=== PATIENT | male | born 1945 | race African-American/Black ===

== ENCOUNTER 2020-03-10 19:27 | Inpatient (IN) ==
[~2020-03-10 19:27] MED LIST: LEVOFLOXACIN INJ 750 MG in PREMIX 1 EACH IV ONE
[2020-03-10 20:36] LABS: Basophils % 0.2 % (0.0-0.8); Eosinophils # 0.2 10*3/uL (0.0-0.87); Eosinophils % 2.1 % (0.00-10.9); Hematocrit 29.9 VOL% (42.0-52.0); Hemoglobin 9.4 GM/DL (14.0-18.0); Immature Granulocytes % 0.8 %; Immature Granulocytes Absolute 0.08 #; Lymphocytes % 9.8 % (21.2-54.2); Mean Corpuscular HGB Conc 31.4 GM/DL (32-36); Mean Corpuscular Volume 90.1 FL (87-102); Mean Platelet Volume 10.4 FL (9.6-12.0); Monocytes % 7.9 % (1.7-12.7); Neutrophils % 79.2 % (38.7-73.9); Platelet Count 199 T/CUMM (130-400); Red Blood Count 3.32 MC/CUMM (3.8-5.5); Red Cell Distribution Width 13.9 % (9.3-17.3); White Blood Count 10.3 T/CUMM (4-12)
[2020-03-10 21:06] LABS: Albumin 2.7 G/DL (3.4-5.0); Bilirubin,Total 0.9 MG/DL (0.2-1.0); Calcium 7.5 MG/DL (8.5-10.1); Osmolality,Calculated 286.4 MOS/KG (273-304); Total Protein 6.7 G/DL (6.4-8.3)
[2020-03-10 21:18] LABS: Ferritin 1150.5 ng/ml (26-388)
[2020-03-10] MEDS ORDERED: SODIUM CHLORIDE 0.9% 500 ML IV STA (21:24)
[2020-03-10] MEDS ORDERED: PIPERACILLIN/TAZOBACTAM 3,375 MG in SODIUM CHLORIDE 0.9% 100 ML IV STA (21:25)
[2020-03-10] MEDS ORDERED: ONDANSETRON 4 MG/2 ML VIAL IV PRN (23:38)
[2020-03-10] MEDS ORDERED: DEXTROSE 10% 250 ML BAG IV PRN (23:38)
[2020-03-10] MEDS ORDERED: ACETAMINOPHEN 325 MG TABLET PO PRN (23:38)
[2020-03-10] MEDS ORDERED: GLUCAGON 1 MG VIAL IM PRN (23:38)
[2020-03-11] MEDS: SODIUM CHLORIDE 0.9% 1,000 ML IV SCH ×2 (00:54→18:34)
[2020-03-11] MEDS: HEPARIN 5,000 UNIT/1 ML VIAL SUBCUT SCH ×3 (00:55→16:30)
[2020-03-11] MEDS ORDERED: LEVOFLOXACIN INJ 750 MG in PREMIX 1 EACH IV ONE (02:00)
[2020-03-11 06:04] LABS: Basophils % 0.2 % (0.0-0.8); Eosinophils # 0.2 10*3/uL (0.0-0.87); Eosinophils % 2.2 % (0.00-10.9); Hematocrit 29.2 VOL% (42.0-52.0); Hemoglobin 9.3 GM/DL (14.0-18.0); Immature Granulocytes % 1.1 %; Immature Granulocytes Absolute 0.11 #; Lymphocytes # 0.9 10*3/uL (1.4-4.0); Lymphocytes % 8.9 % (21.2-54.2); Mean Corpuscular HGB Conc 31.8 GM/DL (32-36); Mean Corpuscular Volume 90.7 FL (87-102); Mean Platelet Volume 10.7 FL (9.6-12.0); Monocytes % 8.5 % (1.7-12.7); Neutrophils % 79.1 % (38.7-73.9); Platelet Count 190 T/CUMM (130-400); Red Blood Count 3.22 MC/CUMM (3.8-5.5); Red Cell Distribution Width 13.9 % (9.3-17.3); White Blood Count 9.6 T/CUMM (4-12)
[2020-03-11 06:28] LABS: Calcium 7.9 MG/DL (8.5-10.1); Osmolality,Calculated 291.9 MOS/KG (273-304)
[2020-03-11] MEDS ORDERED: HYDROXYCHLOROQUINE 200 MG TABLET PO SCH (09:00)
[2020-03-11] MEDS: PIPERACILLIN/TAZOBACTAM 3,375 MG in SODIUM CHLORIDE 0.9% 100 ML IV SCH ×2 (09:14→23:52)
[2020-03-11] MEDS: INSULIN LISPRO 100 UNIT/ML SUBCUT SCH ×4 (09:14→21:02)
[2020-03-11] MEDS: ZINC SULFATE 220 MG CAPSULE PO SCH (09:14)
[2020-03-11] MEDS ORDERED: ALBUTEROL/IPRATROPIUM 3 ML NEB RESP TX PRN (11:11)
[2020-03-11] MEDS: traMADol 50 MG TABLET PO SCH (12:11)
[2020-03-11] MEDS: INSULIN NPH/REGULAR 70/30 100 UNIT/ML SUBCUT SCH (16:22)
[2020-03-11] MEDS: GABAPENTIN 300 MG CAPSULE PO SCH ×2 (16:30→21:00)
[2020-03-11] MEDS ORDERED: FUROSEMIDE 80 MG TABLET PO SCH (21:00)
[2020-03-11] MEDS: carvediloL 12.5 MG TABLET PO SCH (21:00)
[2020-03-11] MEDS: FERROUS SULFATE 325 MG TABLET PO SCH (21:00)
[2020-03-11] MEDS: POLYETHYLENE GLYCOL POWDER 17 GM PACK PO SCH (23:52)
[2020-03-12] MEDS: HEPARIN 5,000 UNIT/1 ML VIAL SUBCUT SCH ×3 (00:35→16:12)
[2020-03-12] MEDS: traMADol 50 MG TABLET PO SCH ×2 (00:35→12:10)
[2020-03-12 06:11] LABS: Basophils % 0.2 % (0.0-0.8); Eosinophils # 0.2 10*3/uL (0.0-0.87); Eosinophils % 2.1 % (0.00-10.9); Hematocrit 28.4 VOL% (42.0-52.0); Hemoglobin 9.2 GM/DL (14.0-18.0); Lymphocytes % 10.7 % (21.2-54.2); Mean Corpuscular HGB Conc 32.4 GM/DL (32-36); Mean Corpuscular Volume 88.8 FL (87-102); Mean Platelet Volume 10.4 FL (9.6-12.0); Monocytes % 9.3 % (1.7-12.7); Neutrophils % 76.7 % (38.7-73.9); Platelet Count 208 T/CUMM (130-400); White Blood Count 9.6 T/CUMM (4-12)
[2020-03-12] MEDS: INSULIN NPH/REGULAR 70/30 100 UNIT/ML SUBCUT SCH ×2 (06:18→16:12)
[2020-03-12] MEDS: SODIUM CHLORIDE 0.9% 1,000 ML IV SCH ×2 (06:19→22:34)
[2020-03-12 06:36] LABS: Osmolality,Calculated 296.5 MOS/KG (273-304)
[2020-03-12 06:42] LABS: Ferritin 1365.4 ng/ml (26-388)
[2020-03-12] MEDS ORDERED: HYDROXYCHLOROQUINE 200 MG TABLET PO SCH (09:00)
[2020-03-12] MEDS ORDERED: TORSEMIDE 20 MG TABLET PO SCH (09:00)
[2020-03-12] MEDS ORDERED: metOLazone 2.5 MG TABLET PO SCH (09:00)
[2020-03-12] MEDS: ATORVASTATIN 80 MG TABLET PO SCH (09:26)
[2020-03-12] MEDS: SPIRONOLACTONE 25 MG TABLET PO SCH (09:26)
[2020-03-12] MEDS: INSULIN LISPRO 100 UNIT/ML SUBCUT SCH ×4 (09:26→21:42)
[2020-03-12] MEDS: CETIRIZINE 10 MG TABLET PO SCH (09:30)
[2020-03-12] MEDS: carvediloL 12.5 MG TABLET PO SCH ×2 (09:30→21:40)
[2020-03-12] MEDS: LOSARTAN 25 MG TABLET PO SCH (09:31)
[2020-03-12] MEDS: ISOSORBIDE MONONITRATE 30 MG TABLET PO SCH (09:31)
[2020-03-12] MEDS: GABAPENTIN 300 MG CAPSULE PO SCH ×3 (09:31→21:40)
[2020-03-12] MEDS: CLOPIDOGREL 75 MG TABLET PO SCH (09:31)
[2020-03-12] MEDS: TAMSULOSIN 0.4 MG CAPSULE PO SCH (09:31)
[2020-03-12] MEDS: POTASSIUM CHLORIDE 20 MEQ TABLET PO SCH (09:31)
[2020-03-12] MEDS: FERROUS SULFATE 325 MG TABLET PO SCH ×2 (09:32→21:40)
[2020-03-12] MEDS: ASPIRIN CHEW 81 MG TABLET PO SCH (09:32)
[2020-03-12] MEDS: POLYETHYLENE GLYCOL POWDER 17 GM PACK PO SCH ×2 (09:32→21:40)
[2020-03-12] MEDS: PIPERACILLIN/TAZOBACTAM 3,375 MG in SODIUM CHLORIDE 0.9% 100 ML IV SCH ×2 (09:45→21:37)
[2020-03-13] MEDS: traMADol 50 MG TABLET PO SCH ×2 (00:30→14:07)
[2020-03-13] MEDS: HEPARIN 5,000 UNIT/1 ML VIAL SUBCUT SCH ×3 (00:31→16:13)
[2020-03-13] MEDS: LEVOFLOXACIN INJ 500 MG in PREMIX 1 EACH IV SCH (02:00)
[2020-03-13 06:16] LABS: Ferritin 1461.5 ng/ml (26-388)
[2020-03-13 07:10] LABS: Basophils % 0.2 % (0.0-0.8); Eosinophils # 0.2 10*3/uL (0.0-0.87); Eosinophils % 1.5 % (0.00-10.9); Hemoglobin 8.5 GM/DL (14.0-18.0); Immature Granulocytes % 1.8 %; Immature Granulocytes Absolute 0.18 #; Mean Corpuscular HGB Conc 31.5 GM/DL (32-36); Mean Corpuscular Volume 90.9 FL (87-102); Mean Platelet Volume 10.3 FL (9.6-12.0); Monocytes % 8.2 % (1.7-12.7); NRBC # 0.02 10*3/uL; Neutrophils % 78.3 % (38.7-73.9); Platelet Count 231 T/CUMM (130-400); Red Blood Count 2.97 MC/CUMM (3.8-5.5); Red Cell Distribution Width 14.2 % (9.3-17.3); White Blood Count 10.1 T/CUMM (4-12)
[2020-03-13 07:25] LABS: ABG Base Excess 3.3 MMOL/L (-2.5-2.5); ABG HCO3 27.2 MMOL/L (20-26); ABG Oxygen Saturation 90.4 % (95-100); ABG PCO2 51.2 MM HG (35-48); ABG PH 7.366 (7.35-7.45); ABG PO2 62.7 MM HG (80-95); ABG TCO2 27.3 MMOL/L (23-27)
[2020-03-13 07:27] LABS: Calcium 7.8 MG/DL (8.5-10.1); Osmolality,Calculated 300.5 MOS/KG (273-304); Total Protein 6.7 G/DL (6.4-8.3)
[2020-03-13 07:29] LABS: Eosinophils 1 % (0-10); Hypochromasia 1+; Lymphocytes 12 % (20-55); Platelet Estimate Adequate; Segmented Neutrophils 78 % (50-85); Total Cells Counted 100
[2020-03-13] MEDS: INSULIN NPH/REGULAR 70/30 100 UNIT/ML SUBCUT SCH ×2 (07:56→16:16)
[2020-03-13] MEDS: ASPIRIN CHEW 81 MG TABLET PO SCH (08:43)
[2020-03-13] MEDS: ATORVASTATIN 80 MG TABLET PO SCH (08:43)
[2020-03-13] MEDS: GABAPENTIN 300 MG CAPSULE PO SCH ×3 (08:43→21:22)
[2020-03-13] MEDS: CETIRIZINE 10 MG TABLET PO SCH (08:43)
[2020-03-13] MEDS: FERROUS SULFATE 325 MG TABLET PO SCH ×2 (08:44→21:20)
[2020-03-13] MEDS: ZINC SULFATE 220 MG CAPSULE PO SCH (08:44)
[2020-03-13] MEDS: SPIRONOLACTONE 25 MG TABLET PO SCH (08:44)
[2020-03-13] MEDS: POTASSIUM CHLORIDE 20 MEQ TABLET PO SCH (08:44)
[2020-03-13] MEDS: TAMSULOSIN 0.4 MG CAPSULE PO SCH (08:44)
[2020-03-13] MEDS: DOCUSATE SODIUM 100 MG CAPSULE PO PRN (08:44)
[2020-03-13] MEDS: ISOSORBIDE MONONITRATE 30 MG TABLET PO SCH (08:44)
[2020-03-13] MEDS: carvediloL 12.5 MG TABLET PO SCH ×2 (08:45→21:22)
[2020-03-13] MEDS: LOSARTAN 25 MG TABLET PO SCH (08:45)
[2020-03-13] MEDS: CLOPIDOGREL 75 MG TABLET PO SCH (08:45)
[2020-03-13] MEDS: PIPERACILLIN/TAZOBACTAM 3,375 MG in SODIUM CHLORIDE 0.9% 100 ML IV SCH ×2 (08:53→21:18)
[2020-03-13] MEDS: INSULIN LISPRO 100 UNIT/ML SUBCUT SCH ×4 (08:53→21:21)
[2020-03-13] MEDS: POLYETHYLENE GLYCOL POWDER 17 GM PACK PO SCH ×2 (08:54→21:19)
[2020-03-13] MEDS ORDERED: MAGNESIUM HYDROXIDE PO PRN (12:33)
[2020-03-13] MEDS ORDERED: ALUMINUM HYDROXIDE PO PRN (12:33)
[2020-03-13] MEDS ORDERED: ONDANSETRON ODT 4 MG TABLET PO PRN (12:33)
[2020-03-13] MEDS ORDERED: ACETAMINOPHEN 325 MG TABLET PO PRN (12:33)
[2020-03-13] MEDS ORDERED: SIMETHICONE PO PRN (12:33)
[2020-03-13] MEDS ORDERED: POLYVINYL ALCOHOL 1.4% OPH SOLN 15 ML BOTTLE BOTH EYES PRN (12:38)
[2020-03-13] MEDS ORDERED: MAGNESIUM SULF RIDER 2 GM in PREMIX 1 EACH IV ONE (15:00)
[2020-03-13] MEDS: ALBUTEROL INHALER 18 GM INH SCH ×2 (15:33→21:22)
[2020-03-13] MEDS ORDERED: MORPHINE 4 MG/1 ML VIAL IV PRN (16:43)
[2020-03-13 16:47] LABS: ABG Base Excess 3.1 MMOL/L (-2.5-2.5); ABG Oxygen Saturation 79.9 % (95-100); ABG PCO2 44.3 MM HG (35-48); ABG TCO2 26.2 MMOL/L (23-27)
[2020-03-13] MEDS ORDERED: DEXAMETHASONE INJ 6 MG in SODIUM CHLORIDE 0.9% 50 ML IV SCH (17:00)
[2020-03-13] MEDS ORDERED: FUROSEMIDE INJ 160 MG in SODIUM CHLORIDE 0.9% 50 ML IV ONE (18:00)
[2020-03-13] MEDS: DEXAMETHASONE 4 MG/1 ML VIAL IV SCH (18:06)
[2020-03-13] MEDS: SODIUM CHLORIDE 0.9% 1,000 ML IV SCH ×2 (18:06→18:07)
[2020-03-13] MEDS: ASCORBIC ACID 500 MG TABLET PO SCH (21:20)
[2020-03-14] MEDS: traMADol 50 MG TABLET PO SCH ×2 (00:51→12:41)
[2020-03-14] MEDS: HEPARIN 5,000 UNIT/1 ML VIAL SUBCUT SCH ×3 (00:52→17:57)
[2020-03-14] MEDS: ALBUTEROL INHALER 18 GM INH SCH ×4 (03:30→20:32)
[2020-03-14 05:18] LABS: Basophils % 0.2 % (0.0-0.8); Eosinophils % 0.1 % (0.00-10.9); Hematocrit 28.9 VOL% (42.0-52.0); Immature Granulocytes % 2.5 %; Immature Granulocytes Absolute 0.29 #; Lymphocytes # 1.4 10*3/uL (1.4-4.0); Lymphocytes % 11.8 % (21.2-54.2); Mean Corpuscular HGB Conc 31.1 GM/DL (32-36); Mean Corpuscular Volume 90.9 FL (87-102); Mean Platelet Volume 9.8 FL (9.6-12.0); Monocytes % 5.7 % (1.7-12.7); Neutrophils % 79.7 % (38.7-73.9); Platelet Count 293 T/CUMM (130-400); Red Blood Count 3.18 MC/CUMM (3.8-5.5); Red Cell Distribution Width 14.3 % (9.3-17.3); White Blood Count 11.5 T/CUMM (4-12)
[2020-03-14 05:48] LABS: Hypochromasia 1+; Polychromasia Slight
[2020-03-14 05:49] LABS: Microcytosis Slight; Platelet Estimate Normal
[2020-03-14 05:54] LABS: Albumin 2.2 G/DL (3.4-5.0); Bilirubin,Total 1.2 MG/DL (0.2-1.0); Calcium 8.6 MG/DL (8.5-10.1); Osmolality,Calculated 306.2 MOS/KG (273-304); Total Protein 7.4 G/DL (6.4-8.3)
[2020-03-14 05:55] LABS: Ferritin 1485.3 ng/ml (26-388)
[2020-03-14] MEDS ORDERED: NON-FORMULARY MEDICATION (Omeprazole 20 MG) PO SCH (06:00)
[2020-03-14 07:28] LABS: ABG Base Excess 1.8 MMOL/L (-2.5-2.5); ABG HCO3 25.8 MMOL/L (20-26); ABG Oxygen Saturation 85.3 % (95-100); ABG PCO2 38.7 MM HG (35-48); ABG PH 7.435 (7.35-7.45); ABG PO2 51.6 MM HG (80-95); ABG TCO2 23.8 MMOL/L (23-27)
[2020-03-14] MEDS ORDERED: LORazepam 2 MG/1 ML VIAL IV ONE (09:00)
[2020-03-14] MEDS: INSULIN NPH/REGULAR 70/30 100 UNIT/ML SUBCUT SCH ×2 (09:16→17:57)
[2020-03-14] MEDS: INSULIN LISPRO 100 UNIT/ML SUBCUT SCH ×4 (09:16→20:30)
[2020-03-14] MEDS: TAMSULOSIN 0.4 MG CAPSULE PO SCH (09:17)
[2020-03-14] MEDS: MULTIVITAMIN (CENTRUM) TABLET PO SCH (09:17)
[2020-03-14] MEDS: ISOSORBIDE MONONITRATE 30 MG TABLET PO SCH (09:17)
[2020-03-14] MEDS: CLOPIDOGREL 75 MG TABLET PO SCH (09:18)
[2020-03-14] MEDS: LOSARTAN 25 MG TABLET PO SCH (09:18)
[2020-03-14] MEDS: GABAPENTIN 300 MG CAPSULE PO SCH ×3 (09:18→20:31)
[2020-03-14] MEDS: carvediloL 12.5 MG TABLET PO SCH ×2 (09:18→20:32)
[2020-03-14] MEDS: DOCUSATE SODIUM 100 MG CAPSULE PO PRN (09:18)
[2020-03-14] MEDS: FERROUS SULFATE 325 MG TABLET PO SCH ×2 (09:18→20:32)
[2020-03-14] MEDS: ATORVASTATIN 80 MG TABLET PO SCH (09:18)
[2020-03-14] MEDS: POLYETHYLENE GLYCOL POWDER 17 GM PACK PO SCH ×2 (09:19→20:31)
[2020-03-14] MEDS: POTASSIUM CHLORIDE 20 MEQ TABLET PO SCH (09:19)
[2020-03-14] MEDS: FINASTERIDE 5 MG TABLET PO SCH (09:19)
[2020-03-14] MEDS: DEXAMETHASONE 4 MG/1 ML VIAL IV SCH (09:20)
[2020-03-14] MEDS: SPIRONOLACTONE 25 MG TABLET PO SCH (09:20)
[2020-03-14] MEDS: ASPIRIN CHEW 81 MG TABLET PO SCH (09:20)
[2020-03-14] MEDS: ASCORBIC ACID 500 MG TABLET PO SCH ×2 (09:24→20:32)
[2020-03-14] MEDS: CETIRIZINE 10 MG TABLET PO SCH (09:24)
[2020-03-14] MEDS: PANTOPRAZOLE 20 MG TABLET PO SCH (09:24)
[2020-03-14] MEDS: LEVOFLOXACIN INJ 500 MG in PREMIX 1 EACH IV SCH (14:55)
[2020-03-14] MEDS: SODIUM CHLORIDE 0.9% 1,000 ML IV SCH (17:58)
[2020-03-15] MEDS: HEPARIN 5,000 UNIT/1 ML VIAL SUBCUT SCH ×3 (00:50→16:15)
[2020-03-15] MEDS: traMADol 50 MG TABLET PO SCH ×2 (00:50→12:02)
[2020-03-15] MEDS: ALBUTEROL INHALER 18 GM INH SCH ×4 (03:24→20:23)
[2020-03-15 05:19] LABS: Basophils % 0.3 % (0.0-0.8); Eosinophils % 0.2 % (0.00-10.9); Hematocrit 27.3 VOL% (42.0-52.0); Hemoglobin 8.7 GM/DL (14.0-18.0); Immature Granulocytes % 3.1 %; Immature Granulocytes Absolute 0.35 #; Lymphocytes # 1.3 10*3/uL (1.4-4.0); Mean Corpuscular HGB Conc 31.9 GM/DL (32-36); Mean Corpuscular Volume 89.8 FL (87-102); Mean Platelet Volume 9.9 FL (9.6-12.0); Monocytes % 10.2 % (1.7-12.7); NRBC # 0.02 10*3/uL; Neutrophils % 74.2 % (38.7-73.9); Platelet Count 288 T/CUMM (130-400); Red Blood Count 3.04 MC/CUMM (3.8-5.5); Red Cell Distribution Width 14.2 % (9.3-17.3); White Blood Count 11.1 T/CUMM (4-12)
[2020-03-15 05:44] LABS: Ferritin 1557.9 ng/ml (26-388)
[2020-03-15 05:45] LABS: Albumin 2.3 G/DL (3.4-5.0); Bilirubin,Total 0.7 MG/DL (0.2-1.0); Calcium 8.6 MG/DL (8.5-10.1); Osmolality,Calculated 300.4 MOS/KG (273-304)
[2020-03-15 05:52] LABS: Band Neutrophils 1 % (0-10); Hypochromasia 1+; Lymphocytes 4 % (20-55); Microcytosis Slight; Ovalocytes Slight; Platelet Estimate Adequate; Segmented Neutrophils 87 % (50-85); Total Cells Counted 100
[2020-03-15 05:54] LABS: Risk Ratio 3.38; VLDL CHOLESTEROL 19.6 MG/DL
[2020-03-15] MEDS: INSULIN NPH/REGULAR 70/30 100 UNIT/ML SUBCUT SCH ×2 (06:23→16:15)
[2020-03-15] MEDS: INSULIN LISPRO 100 UNIT/ML SUBCUT SCH ×4 (08:21→20:23)
[2020-03-15] MEDS: ATORVASTATIN 80 MG TABLET PO SCH (08:23)
[2020-03-15] MEDS: MULTIVITAMIN (CENTRUM) TABLET PO SCH (08:23)
[2020-03-15] MEDS: GABAPENTIN 300 MG CAPSULE PO SCH ×3 (08:23→20:23)
[2020-03-15] MEDS: CLOPIDOGREL 75 MG TABLET PO SCH (08:24)
[2020-03-15] MEDS: LOSARTAN 25 MG TABLET PO SCH (08:24)
[2020-03-15] MEDS: ISOSORBIDE MONONITRATE 30 MG TABLET PO SCH (08:24)
[2020-03-15] MEDS: PANTOPRAZOLE 20 MG TABLET PO SCH (08:24)
[2020-03-15] MEDS: ZINC SULFATE 220 MG CAPSULE PO SCH (08:24)
[2020-03-15] MEDS: ASCORBIC ACID 500 MG TABLET PO SCH ×2 (08:24→20:23)
[2020-03-15] MEDS: FERROUS SULFATE 325 MG TABLET PO SCH ×2 (08:24→20:23)
[2020-03-15] MEDS: POTASSIUM CHLORIDE 20 MEQ TABLET PO SCH (08:24)
[2020-03-15] MEDS: ASPIRIN CHEW 81 MG TABLET PO SCH (08:24)
[2020-03-15] MEDS: TAMSULOSIN 0.4 MG CAPSULE PO SCH (08:24)
[2020-03-15] MEDS: carvediloL 12.5 MG TABLET PO SCH ×2 (08:24→20:23)
[2020-03-15] MEDS: DEXAMETHASONE 4 MG/1 ML VIAL IV SCH (08:25)
[2020-03-15] MEDS: POLYETHYLENE GLYCOL POWDER 17 GM PACK PO SCH ×2 (08:26→20:23)
[2020-03-15] MEDS: CETIRIZINE 10 MG TABLET PO SCH (08:26)
[2020-03-15] MEDS: FINASTERIDE 5 MG TABLET PO SCH (08:29)
[2020-03-15 10:49] LABS: ABG Base Excess 4.5 MMOL/L (-2.5-2.5); ABG HCO3 28.5 MMOL/L (20-26); ABG Oxygen Saturation 96.8 % (95-100); ABG PCO2 43.2 MM HG (35-48); ABG PH 7.437 (7.35-7.45); ABG PO2 82.7 MM HG (80-95)
[2020-03-16] MEDS: HEPARIN 5,000 UNIT/1 ML VIAL SUBCUT SCH ×3 (00:30→16:53)
[2020-03-16] MEDS: traMADol 50 MG TABLET PO SCH ×2 (00:30→12:51)
[2020-03-16 03:24] LABS: Basophils % 0.1 % (0.0-0.8); Eosinophils # 0.1 10*3/uL (0.0-0.87); Eosinophils % 0.9 % (0.00-10.9); Hematocrit 28.9 VOL% (42.0-52.0); Hemoglobin 8.8 GM/DL (14.0-18.0); Immature Granulocytes % 4.9 %; Immature Granulocytes Absolute 0.48 #; Lymphocytes # 1.2 10*3/uL (1.4-4.0); Lymphocytes % 12.3 % (21.2-54.2); Mean Corpuscular HGB Conc 30.4 GM/DL (32-36); Mean Corpuscular Volume 92.9 FL (87-102); Mean Platelet Volume 9.6 FL (9.6-12.0); Monocytes % 10.5 % (1.7-12.7); NRBC # 0.03 10*3/uL; Neutrophils % 71.3 % (38.7-73.9); Platelet Count 301 T/CUMM (130-400); Red Blood Count 3.11 MC/CUMM (3.8-5.5); Red Cell Distribution Width 14.2 % (9.3-17.3); White Blood Count 9.8 T/CUMM (4-12)
[2020-03-16] MEDS: ALBUTEROL INHALER 18 GM INH SCH ×4 (03:29→21:45)
[2020-03-16 03:43] LABS: Albumin 2.2 G/DL (3.4-5.0); Bilirubin,Total 0.7 MG/DL (0.2-1.0); Calcium 9.2 MG/DL (8.5-10.1); Osmolality,Calculated 304.8 MOS/KG (273-304); Total Protein 7.2 G/DL (6.4-8.3)
[2020-03-16 03:44] LABS: Ferritin 1111.3 ng/ml (26-388)
[2020-03-16 04:10] LABS: Anisocytosis 1+; Polychromasia Slight
[2020-03-16 04:11] LABS: Platelet Estimate Normal
[2020-03-16 04:23] LABS: ABG Base Excess 5.2 MMOL/L (-2.5-2.5); ABG HCO3 29.3 MMOL/L (20-26); ABG Oxygen Saturation 89.1 % (95-100); ABG PCO2 41.4 MM HG (35-48); ABG PH 7.468 (7.35-7.45); ABG PO2 56.6 MM HG (80-95); ABG TCO2 30.6 MMOL/L (23-27); Allen Test Positive; Pt O2 Delivery Device Other
[2020-03-16] MEDS: INSULIN NPH/REGULAR 70/30 100 UNIT/ML SUBCUT SCH ×2 (06:23→16:53)
[2020-03-16] MEDS: ISOSORBIDE MONONITRATE 30 MG TABLET PO SCH (08:10)
[2020-03-16] MEDS: FINASTERIDE 5 MG TABLET PO SCH (08:10)
[2020-03-16] MEDS: GABAPENTIN 300 MG CAPSULE PO SCH ×3 (08:10→21:45)
[2020-03-16] MEDS: CETIRIZINE 10 MG TABLET PO SCH (08:11)
[2020-03-16] MEDS: carvediloL 12.5 MG TABLET PO SCH ×2 (08:11→21:45)
[2020-03-16] MEDS: PANTOPRAZOLE 20 MG TABLET PO SCH (08:11)
[2020-03-16] MEDS: CLOPIDOGREL 75 MG TABLET PO SCH (08:11)
[2020-03-16] MEDS: TAMSULOSIN 0.4 MG CAPSULE PO SCH (08:11)
[2020-03-16] MEDS: MULTIVITAMIN (CENTRUM) TABLET PO SCH (08:11)
[2020-03-16] MEDS: FERROUS SULFATE 325 MG TABLET PO SCH ×2 (08:11→21:45)
[2020-03-16] MEDS: ASPIRIN CHEW 81 MG TABLET PO SCH (08:11)
[2020-03-16] MEDS: LOSARTAN 25 MG TABLET PO SCH (08:11)
[2020-03-16] MEDS: ATORVASTATIN 80 MG TABLET PO SCH (08:11)
[2020-03-16] MEDS: ASCORBIC ACID 500 MG TABLET PO SCH ×2 (08:11→21:45)
[2020-03-16] MEDS: POTASSIUM CHLORIDE 20 MEQ TABLET PO SCH (08:12)
[2020-03-16] MEDS: POLYETHYLENE GLYCOL POWDER 17 GM PACK PO SCH ×3 (08:12→21:51)
[2020-03-16] MEDS: INSULIN LISPRO 100 UNIT/ML SUBCUT SCH ×4 (08:13→21:45)
[2020-03-16] MEDS: DEXAMETHASONE 4 MG/1 ML VIAL IV SCH (08:13)
[2020-03-16] MEDS: LEVOFLOXACIN INJ 500 MG in PREMIX 1 EACH IV SCH (08:14)
[2020-03-16] MEDS: SODIUM CHLORIDE 0.9% 1,000 ML IV SCH (09:05)
[2020-03-16] MEDS ORDERED: REMDESIVIR 200 MG in SODIUM CHLORIDE 0.9% 210 ML IV ONE (12:00)
[2020-03-17] MEDS: HEPARIN 5,000 UNIT/1 ML VIAL SUBCUT SCH ×3 (00:21→16:25)
[2020-03-17] MEDS: traMADol 50 MG TABLET PO SCH ×2 (00:21→12:33)
[2020-03-17] MEDS: ALBUTEROL INHALER 18 GM INH SCH ×4 (03:42→22:01)
[2020-03-17 04:20] LABS: ABG Base Excess 4.2 MMOL/L (-2.5-2.5); ABG HCO3 28.1 MMOL/L (20-26); ABG Oxygen Saturation 90.7 % (95-100); ABG PCO2 39.5 MM HG (35-48); ABG PO2 60.2 MM HG (80-95); ABG TCO2 29.3 MMOL/L (23-27); Allen Test Positive; Pt O2 Delivery Device Other
[2020-03-17 04:59] LABS: Basophils % 0.3 % (0.0-0.8); Eosinophils # 0.1 10*3/uL (0.0-0.87); Eosinophils % 1.1 % (0.00-10.9); Hematocrit 28.6 VOL% (42.0-52.0); Hemoglobin 8.9 GM/DL (14.0-18.0); Immature Granulocytes % 5.2 %; Immature Granulocytes Absolute 0.57 #; Lymphocytes # 1.4 10*3/uL (1.4-4.0); Mean Corpuscular HGB Conc 31.1 GM/DL (32-36); Mean Corpuscular Volume 91.1 FL (87-102); Mean Platelet Volume 9.9 FL (9.6-12.0); Monocytes % 10.9 % (1.7-12.7); NRBC # 0.04 10*3/uL; Neutrophils % 69.5 % (38.7-73.9); Platelet Count 307 T/CUMM (130-400); Red Blood Count 3.14 MC/CUMM (3.8-5.5); Red Cell Distribution Width 14.5 % (9.3-17.3); White Blood Count 10.9 T/CUMM (4-12)
[2020-03-17 05:15] LABS: Albumin 2.2 G/DL (3.4-5.0); Bilirubin,Total 0.5 MG/DL (0.2-1.0); Calcium 9.4 MG/DL (8.5-10.1); Osmolality,Calculated 299.8 MOS/KG (273-304); Total Protein 7.1 G/DL (6.4-8.3)
[2020-03-17 05:20] LABS: Band Neutrophils 1 % (0-10); Eosinophils 1 % (0-10); Lymphocytes 16 % (20-55); Platelet Estimate Adequate; Segmented Neutrophils 66 % (50-85); Total Cells Counted 100
[2020-03-17 05:21] LABS: Hypochromasia 1+; Microcytosis 1+
[2020-03-17 05:46] LABS: Ferritin 914.2 ng/ml (26-388)
[2020-03-17] MEDS: INSULIN NPH/REGULAR 70/30 100 UNIT/ML SUBCUT SCH ×2 (05:58→16:25)
[2020-03-17] MEDS: SODIUM CHLORIDE 0.9% 1,000 ML IV SCH ×2 (06:56→16:59)
[2020-03-17] MEDS: DEXAMETHASONE 4 MG/1 ML VIAL IV SCH (08:00)
[2020-03-17] MEDS: CETIRIZINE 10 MG TABLET PO SCH (08:01)
[2020-03-17] MEDS: GABAPENTIN 300 MG CAPSULE PO SCH ×3 (08:01→22:00)
[2020-03-17] MEDS: INSULIN LISPRO 100 UNIT/ML SUBCUT SCH ×4 (08:01→21:59)
[2020-03-17] MEDS: MULTIVITAMIN (CENTRUM) TABLET PO SCH (08:02)
[2020-03-17] MEDS: POTASSIUM CHLORIDE 20 MEQ TABLET PO SCH (08:02)
[2020-03-17] MEDS: ATORVASTATIN 80 MG TABLET PO SCH (08:02)
[2020-03-17] MEDS: PANTOPRAZOLE 20 MG TABLET PO SCH (08:02)
[2020-03-17] MEDS: TAMSULOSIN 0.4 MG CAPSULE PO SCH (08:02)
[2020-03-17] MEDS: LOSARTAN 25 MG TABLET PO SCH (08:02)
[2020-03-17] MEDS: ISOSORBIDE MONONITRATE 30 MG TABLET PO SCH (08:02)
[2020-03-17] MEDS: FINASTERIDE 5 MG TABLET PO SCH (08:02)
[2020-03-17] MEDS: CLOPIDOGREL 75 MG TABLET PO SCH (08:02)
[2020-03-17] MEDS: ASPIRIN CHEW 81 MG TABLET PO SCH (08:02)
[2020-03-17] MEDS: carvediloL 12.5 MG TABLET PO SCH ×2 (08:02→21:58)
[2020-03-17] MEDS: ASCORBIC ACID 500 MG TABLET PO SCH ×2 (08:02→22:00)
[2020-03-17] MEDS: FERROUS SULFATE 325 MG TABLET PO SCH ×2 (08:02→21:59)
[2020-03-17] MEDS: POLYETHYLENE GLYCOL POWDER 17 GM PACK PO SCH ×2 (08:03→22:00)
[2020-03-17] MEDS: REMDESIVIR 100 MG in SODIUM CHLORIDE 0.9% 230 ML IV SCH (12:33)
[2020-03-18] MEDS: traMADol 50 MG TABLET PO SCH ×2 (01:20→11:42)
[2020-03-18] MEDS: HEPARIN 5,000 UNIT/1 ML VIAL SUBCUT SCH ×3 (01:20→16:32)
[2020-03-18] MEDS: ALBUTEROL INHALER 18 GM INH SCH ×4 (03:35→20:58)
[2020-03-18 03:45] LABS: ABG HCO3 27.9 MMOL/L (20-26); ABG Oxygen Saturation 87.6 % (95-100); ABG PCO2 44.2 MM HG (35-48); ABG PH 7.424 (7.35-7.45); ABG PO2 54.5 MM HG (80-95); ABG TCO2 26.6 MMOL/L (23-27)
[2020-03-18 06:07] LABS: Basophils % 0.3 % (0.0-0.8); Eosinophils # 0.2 10*3/uL (0.0-0.87); Eosinophils % 1.4 % (0.00-10.9); Hematocrit 30.7 VOL% (42.0-52.0); Hemoglobin 9.5 GM/DL (14.0-18.0); Immature Granulocytes % 5.6 %; Lymphocytes # 1.7 10*3/uL (1.4-4.0); Lymphocytes % 13.6 % (21.2-54.2); Mean Corpuscular HGB Conc 30.9 GM/DL (32-36); Mean Platelet Volume 9.8 FL (9.6-12.0); Monocytes % 10.8 % (1.7-12.7); NRBC # 0.06 10*3/uL; Neutrophils % 68.3 % (38.7-73.9); Platelet Count 344 T/CUMM (130-400); Red Blood Count 3.23 MC/CUMM (3.8-5.5); Red Cell Distribution Width 14.5 % (9.3-17.3); White Blood Count 12.5 T/CUMM (4-12)
[2020-03-18 06:30] LABS: Albumin 2.3 G/DL (3.4-5.0); Bilirubin,Total 0.4 MG/DL (0.2-1.0); Calcium 9.5 MG/DL (8.5-10.1); Total Protein 7.4 G/DL (6.4-8.3)
[2020-03-18] MEDS: INSULIN NPH/REGULAR 70/30 100 UNIT/ML SUBCUT SCH ×2 (06:40→16:32)
[2020-03-18 07:37] LABS: Eosinophils 2 % (0-10); Lymphocytes 17 % (20-55); Platelet Estimate Normal; Segmented Neutrophils 69 % (50-85); Total Cells Counted 100
[2020-03-18] MEDS: TAMSULOSIN 0.4 MG CAPSULE PO SCH (08:53)
[2020-03-18] MEDS: CLOPIDOGREL 75 MG TABLET PO SCH (08:53)
[2020-03-18] MEDS: INSULIN LISPRO 100 UNIT/ML SUBCUT SCH ×4 (08:53→20:52)
[2020-03-18] MEDS: DEXAMETHASONE 4 MG/1 ML VIAL IV SCH (08:53)
[2020-03-18] MEDS: FERROUS SULFATE 325 MG TABLET PO SCH ×2 (08:53→20:51)
[2020-03-18] MEDS: ATORVASTATIN 80 MG TABLET PO SCH (08:53)
[2020-03-18] MEDS: ASCORBIC ACID 500 MG TABLET PO SCH ×2 (08:54→20:51)
[2020-03-18] MEDS: GABAPENTIN 300 MG CAPSULE PO SCH ×3 (08:54→20:51)
[2020-03-18] MEDS: MULTIVITAMIN (CENTRUM) TABLET PO SCH (08:54)
[2020-03-18] MEDS: FINASTERIDE 5 MG TABLET PO SCH (08:54)
[2020-03-18] MEDS: LOSARTAN 25 MG TABLET PO SCH (08:54)
[2020-03-18] MEDS: ASPIRIN CHEW 81 MG TABLET PO SCH (08:54)
[2020-03-18] MEDS: LEVOFLOXACIN INJ 500 MG in PREMIX 1 EACH IV SCH (08:54)
[2020-03-18] MEDS: PANTOPRAZOLE 20 MG TABLET PO SCH (08:54)
[2020-03-18] MEDS: POTASSIUM CHLORIDE 20 MEQ TABLET PO SCH (08:54)
[2020-03-18] MEDS: carvediloL 12.5 MG TABLET PO SCH ×2 (08:54→20:51)
[2020-03-18] MEDS: CETIRIZINE 10 MG TABLET PO SCH (08:54)
[2020-03-18] MEDS: ISOSORBIDE MONONITRATE 30 MG TABLET PO SCH (08:54)
[2020-03-18] MEDS: POLYETHYLENE GLYCOL POWDER 17 GM PACK PO SCH ×2 (08:55→20:52)
[2020-03-18] MEDS: REMDESIVIR 100 MG in SODIUM CHLORIDE 0.9% 230 ML IV SCH (13:27)
[2020-03-18] MEDS: SODIUM CHLORIDE 0.9% 1,000 ML IV SCH (17:14)
[2020-03-19] MEDS: HEPARIN 5,000 UNIT/1 ML VIAL SUBCUT SCH ×3 (01:03→16:34)
[2020-03-19] MEDS: SODIUM CHLORIDE 0.9% 1,000 ML IV SCH ×2 (01:10→17:01)
[2020-03-19] MEDS: ALBUTEROL INHALER 18 GM INH SCH ×4 (02:34→22:21)
[2020-03-19 03:58] LABS: Allen Test Positive; Pt O2 Delivery Device Other
[2020-03-19 03:59] LABS: ABG Base Excess 2.1 MMOL/L (-2.5-2.5); ABG HCO3 26.7 MMOL/L (20-26); ABG Oxygen Saturation 95.7 % (95-100); ABG PCO2 41.7 MM HG (35-48); ABG PH 7.424 (7.35-7.45); ABG PO2 83.3 MM HG (80-95)
[2020-03-19] MEDS: INSULIN NPH/REGULAR 70/30 100 UNIT/ML SUBCUT SCH ×2 (06:57→16:33)
[2020-03-19 07:28] LABS: Basophils % 0.3 % (0.0-0.8); Eosinophils # 0.5 10*3/uL (0.0-0.87); Eosinophils % 4.7 % (0.00-10.9); Hematocrit 27.7 VOL% (42.0-52.0); Hemoglobin 8.6 GM/DL (14.0-18.0); Immature Granulocytes % 4.9 %; Immature Granulocytes Absolute 0.54 #; Lymphocytes % 18.2 % (21.2-54.2); Mean Corpuscular Volume 92.3 FL (87-102); Mean Platelet Volume 9.9 FL (9.6-12.0); NRBC # 0.05 10*3/uL; Neutrophils % 60.9 % (38.7-73.9); Platelet Count 298 T/CUMM (130-400); Red Cell Distribution Width 14.6 % (9.3-17.3); White Blood Count 10.9 T/CUMM (4-12)
[2020-03-19] MEDS: INSULIN LISPRO 100 UNIT/ML SUBCUT SCH ×4 (07:28→22:19)
[2020-03-19 07:57] LABS: Albumin 2.2 G/DL (3.4-5.0); Bilirubin,Total 0.5 MG/DL (0.2-1.0); Calcium 9.2 MG/DL (8.5-10.1); Osmolality,Calculated 295.1 MOS/KG (273-304); Total Protein 6.9 G/DL (6.4-8.3)
[2020-03-19 08:03] LABS: Eosinophils 5 % (0-10); Lymphocytes 17 % (20-55); Nucleated Red Blood Cells 2 (0-5); Segmented Neutrophils 67 % (50-85); Total Cells Counted 100
[2020-03-19 08:04] LABS: Hypochromasia 1+; Microcytosis 1+; Ovalocytes Slight; Platelet Estimate Adequate
[2020-03-19] MEDS: FINASTERIDE 5 MG TABLET PO SCH (08:17)
[2020-03-19] MEDS: GABAPENTIN 300 MG CAPSULE PO SCH ×3 (08:17→22:20)
[2020-03-19] MEDS: POTASSIUM CHLORIDE 20 MEQ TABLET PO SCH (08:17)
[2020-03-19] MEDS: ISOSORBIDE MONONITRATE 30 MG TABLET PO SCH (08:18)
[2020-03-19] MEDS: carvediloL 12.5 MG TABLET PO SCH ×2 (08:18→22:21)
[2020-03-19] MEDS: MULTIVITAMIN (CENTRUM) TABLET PO SCH (08:18)
[2020-03-19] MEDS: CLOPIDOGREL 75 MG TABLET PO SCH (08:18)
[2020-03-19] MEDS: ATORVASTATIN 80 MG TABLET PO SCH (08:18)
[2020-03-19] MEDS: TAMSULOSIN 0.4 MG CAPSULE PO SCH (08:18)
[2020-03-19] MEDS: ASPIRIN CHEW 81 MG TABLET PO SCH (08:18)
[2020-03-19] MEDS: FERROUS SULFATE 325 MG TABLET PO SCH ×2 (08:18→22:21)
[2020-03-19] MEDS: PANTOPRAZOLE 20 MG TABLET PO SCH (08:18)
[2020-03-19] MEDS: LOSARTAN 25 MG TABLET PO SCH (08:18)
[2020-03-19] MEDS: ASCORBIC ACID 500 MG TABLET PO SCH ×2 (08:18→22:20)
[2020-03-19] MEDS: CETIRIZINE 10 MG TABLET PO SCH (08:18)
[2020-03-19] MEDS: DEXAMETHASONE 4 MG/1 ML VIAL IV SCH (08:19)
[2020-03-19] MEDS: POLYETHYLENE GLYCOL POWDER 17 GM PACK PO SCH ×2 (08:19→22:20)
[2020-03-19] MEDS: REMDESIVIR 100 MG in SODIUM CHLORIDE 0.9% 230 ML IV SCH (11:55)
[2020-03-20] MEDS: HEPARIN 5,000 UNIT/1 ML VIAL SUBCUT SCH ×3 (01:12→17:08)
[2020-03-20] MEDS: ALBUTEROL INHALER 18 GM INH SCH ×4 (03:44→21:57)
[2020-03-20 03:59] LABS: ABG Base Excess 1.6 MMOL/L (-2.5-2.5); ABG HCO3 25.8 MMOL/L (20-26); ABG Oxygen Saturation 92.6 % (95-100); ABG PCO2 36.8 MM HG (35-48); ABG PH 7.449 (7.35-7.45); ABG PO2 63.9 MM HG (80-95); ABG TCO2 23.5 MMOL/L (23-27); Allen Test Positive; Pt O2 Delivery Device Other
[2020-03-20] MEDS: INSULIN NPH/REGULAR 70/30 100 UNIT/ML SUBCUT SCH ×2 (07:10→17:08)
[2020-03-20] MEDS: INSULIN LISPRO 100 UNIT/ML SUBCUT SCH ×4 (08:45→22:07)
[2020-03-20] MEDS: ATORVASTATIN 80 MG TABLET PO SCH (08:45)
[2020-03-20] MEDS: FINASTERIDE 5 MG TABLET PO SCH (08:45)
[2020-03-20] MEDS: MULTIVITAMIN (CENTRUM) TABLET PO SCH (08:45)
[2020-03-20] MEDS: DOCUSATE SODIUM 100 MG CAPSULE PO PRN (08:45)
[2020-03-20] MEDS: ISOSORBIDE MONONITRATE 30 MG TABLET PO SCH (08:46)
[2020-03-20] MEDS: POTASSIUM CHLORIDE 20 MEQ TABLET PO SCH (08:46)
[2020-03-20] MEDS: PANTOPRAZOLE 20 MG TABLET PO SCH (08:46)
[2020-03-20] MEDS: carvediloL 12.5 MG TABLET PO SCH ×2 (08:46→21:56)
[2020-03-20] MEDS: TAMSULOSIN 0.4 MG CAPSULE PO SCH (08:46)
[2020-03-20] MEDS: CETIRIZINE 10 MG TABLET PO SCH (08:46)
[2020-03-20] MEDS: LOSARTAN 25 MG TABLET PO SCH (08:46)
[2020-03-20] MEDS: CLOPIDOGREL 75 MG TABLET PO SCH (08:47)
[2020-03-20] MEDS: FERROUS SULFATE 325 MG TABLET PO SCH ×2 (08:47→21:56)
[2020-03-20] MEDS: ASPIRIN CHEW 81 MG TABLET PO SCH (08:47)
[2020-03-20] MEDS: GABAPENTIN 300 MG CAPSULE PO SCH ×3 (08:47→21:56)
[2020-03-20] MEDS: POLYETHYLENE GLYCOL POWDER 17 GM PACK PO SCH ×2 (08:48→21:56)
[2020-03-20] MEDS: DEXAMETHASONE 4 MG/1 ML VIAL IV SCH (08:49)
[2020-03-20] MEDS: LEVOFLOXACIN INJ 500 MG in PREMIX 1 EACH IV SCH (08:52)
[2020-03-20] MEDS: ASCORBIC ACID 500 MG TABLET PO SCH ×2 (09:00→21:56)
[2020-03-20] MEDS: REMDESIVIR 100 MG in SODIUM CHLORIDE 0.9% 230 ML IV SCH (13:00)
[2020-03-20] MEDS: SODIUM CHLORIDE 0.9% 1,000 ML IV SCH (18:06)
[2020-03-21] MEDS: HEPARIN 5,000 UNIT/1 ML VIAL SUBCUT SCH ×2 (01:10→08:05)
[2020-03-21] MEDS: ALBUTEROL INHALER 18 GM INH SCH ×2 (03:55→08:04)
[2020-03-21 05:20] LABS: Basophils % 0.1 % (0.0-0.8); Eosinophils # 0.3 10*3/uL (0.0-0.87); Eosinophils % 2.7 % (0.00-10.9); Hematocrit 28.1 VOL% (42.0-52.0); Hemoglobin 8.7 GM/DL (14.0-18.0); Immature Granulocytes % 2.4 %; Immature Granulocytes Absolute 0.25 #; Lymphocytes % 19.8 % (21.2-54.2); Mean Corpuscular Volume 91.5 FL (87-102); Mean Platelet Volume 9.9 FL (9.6-12.0); Monocytes % 11.4 % (1.7-12.7); NRBC # 0.02 10*3/uL; Neutrophils % 63.6 % (38.7-73.9); Platelet Count 296 T/CUMM (130-400); Red Blood Count 3.07 MC/CUMM (3.8-5.5); Red Cell Distribution Width 14.6 % (9.3-17.3); White Blood Count 10.3 T/CUMM (4-12)
[2020-03-21 05:53] LABS: Calcium 8.9 MG/DL (8.5-10.1); Osmolality,Calculated 292.3 MOS/KG (273-304)
[2020-03-21] MEDS: INSULIN NPH/REGULAR 70/30 100 UNIT/ML SUBCUT SCH (06:31)
[2020-03-21] MEDS: POLYETHYLENE GLYCOL POWDER 17 GM PACK PO SCH (08:04)
[2020-03-21] MEDS: GABAPENTIN 300 MG CAPSULE PO SCH (08:06)
[2020-03-21] MEDS: TAMSULOSIN 0.4 MG CAPSULE PO SCH (08:06)
[2020-03-21] MEDS: MULTIVITAMIN (CENTRUM) TABLET PO SCH (08:06)
[2020-03-21] MEDS: DEXAMETHASONE 4 MG/1 ML VIAL IV SCH (08:06)
[2020-03-21] MEDS: ATORVASTATIN 80 MG TABLET PO SCH (08:07)
[2020-03-21] MEDS: ASCORBIC ACID 500 MG TABLET PO SCH (08:07)
[2020-03-21] MEDS: LOSARTAN 25 MG TABLET PO SCH (08:07)
[2020-03-21] MEDS: ASPIRIN CHEW 81 MG TABLET PO SCH (08:07)
[2020-03-21] MEDS: CLOPIDOGREL 75 MG TABLET PO SCH (08:08)
[2020-03-21] MEDS: FINASTERIDE 5 MG TABLET PO SCH (08:08)
[2020-03-21] MEDS: FERROUS SULFATE 325 MG TABLET PO SCH (08:08)
[2020-03-21] MEDS: PANTOPRAZOLE 20 MG TABLET PO SCH (08:08)
[2020-03-21] MEDS: carvediloL 12.5 MG TABLET PO SCH (08:08)
[2020-03-21] MEDS: CETIRIZINE 10 MG TABLET PO SCH (08:08)
[2020-03-21] MEDS: POTASSIUM CHLORIDE 20 MEQ TABLET PO SCH (08:08)
[2020-03-21] MEDS: ISOSORBIDE MONONITRATE 30 MG TABLET PO SCH (08:08)
[2020-03-21] MEDS: INSULIN LISPRO 100 UNIT/ML SUBCUT SCH ×2 (08:19→12:04)
[2020-03-21 12:06] VITALS: BP 148/63
== END 2020-03-21 14:55 | DRG 177 ==
LOC: EDBD → EDUNIT# → N.ED 19:27 → N.EDINP 22:25 → SUATTDRO 22:25 → N.2E 23:30
PROVIDERS: ADMIT Hospitalist; ATTEND Emergency Medicine

== ENCOUNTER 2021-01-09 18:07 | Inpatient (IN) ==
[2021-01-09] MEDS ORDERED: SODIUM CHLORIDE 0.9% 1,000 ML IV STA (18:58)
[2021-01-09 19:17] LABS: Basophils % 0.2 % (0.0-0.8); Eosinophils # 0.2 10*3/uL (0.0-0.87); Eosinophils % 2.6 % (0.00-10.9); Hematocrit 29.5 VOL% (42.0-52.0); Immature Granulocytes % 1.1 %; Lymphocytes # 1.2 10*3/uL (1.4-4.0); Lymphocytes % 12.8 % (21.2-54.2); Mean Corpuscular HGB Conc 33.9 GM/DL (32-36); Mean Corpuscular Volume 86.8 FL (87-102); Mean Platelet Volume 9.9 FL (9.6-12.0); Monocytes % 7.3 % (1.7-12.7); Platelet Count 196 T/CUMM (130-400); Red Cell Distribution Width 13.7 % (9.3-17.3); White Blood Count 9.3 T/CUMM (4-12)
[2021-01-09 19:30] LABS: PT Patient Result 11.2 SECS (9.8-11.9); Partial Thromboplastin Time 28.5 SECS (23.9-33.8)
[2021-01-09 19:45] LABS: Alanine Aminotransferase 17 U/L (16-61); Albumin 3.4 G/DL (3.4-5.0); Alkaline Phosphatase 111 U/L (45-117); Aspartate Amino Transferase 15 U/L (0-37); Blood Urea Nitrogen 100 MG/DL (7-18); Calcium 9.3 MG/DL (8.5-10.1); Carbon Dioxide 28 MMOL/L (21-32); Estimated Glom Filtration Rate 30 ML/MIN; Glucose 175 MG/DL (74-106); Osmolality,Calculated 283.6 MOS/KG (273-304); Sodium 124 MMOL/L (136-145); Total Protein 7.7 G/DL (6.4-8.2); Troponin I < 0.015 NG/ML (0.00-0.045)
[2021-01-09] MEDS ORDERED: ACETAMINOPHEN 325 MG TABLET PO PRN (22:54)
[2021-01-09] MEDS ORDERED: ONDANSETRON 4 MG/2 ML VIAL IV PRN (22:54)
[2021-01-09] MEDS ORDERED: GLUCAGON 1 MG VIAL IM PRN (22:54)
[2021-01-09] MEDS ORDERED: DEXTROSE 50% 25 GM/50 ML VIAL IV PRN (22:54)
[2021-01-09] MEDS ORDERED: MAGNESIUM SULF RIDER 2 GM in PREMIX 1 EACH IV ONE (22:58)
[2021-01-09] MEDS: SODIUM CHLORIDE 0.9% 1,000 ML IV SCH (23:10)
[2021-01-09] MEDS ORDERED: MECLIZINE 25 MG TABLET PO PRN (23:41)
[2021-01-09 23:49] LABS: Bacteria,Urine Occasional /HPF (Few); Bilirubin,Urine Negative (Negative); Blood, Urine Negative (Negative); Glucose,Urine (UA) Negative (Negative); Hyaline Casts,Urine 1 /LPF (0-3); Ketones,Urine Negative (Negative); Mucus,Urine Occasional /LPF (Occasional); Nitrite,Urine Negative (Negative); Protein,Urine Negative; RBC,Urine 1 /HPF (0-4); Squamous Epithelial Cell,Urine Occasional /HPF (0-10); Urine Appearance CLEAR (Clear); Urine Color Straw (Yellow); Urine Specific Gravity 1.005 (1.001-1.035); Urine Urobilinogen < 2.0 EU/DL (0.2-1.0); WBC,Urine 2 /HPF (0-6)
[2021-01-10 07:04] LABS: Basophils % 0.2 % (0.0-0.8); Eosinophils # 0.2 10*3/uL (0.0-0.87); Eosinophils % 2.2 % (0.00-10.9); Hematocrit 28.6 VOL% (42.0-52.0); Hemoglobin 9.5 GM/DL (14.0-18.0); Immature Granulocytes % 0.7 %; Immature Granulocytes Absolute 0.07 #; Lymphocytes # 1.7 10*3/uL (1.4-4.0); Lymphocytes % 17.2 % (21.2-54.2); Mean Corpuscular HGB Conc 33.2 GM/DL (32-36); Mean Corpuscular Volume 85.9 FL (87-102); Mean Platelet Volume 10.3 FL (9.6-12.0); Monocytes % 8.6 % (1.7-12.7); Neutrophils % 71.1 % (38.7-73.9); Platelet Count 213 T/CUMM (130-400); Red Blood Count 3.33 MC/CUMM (3.8-5.5); Red Cell Distribution Width 13.7 % (9.3-17.3)
[2021-01-10 07:32] LABS: Albumin 3.3 G/DL (3.4-5.0); Bilirubin,Total 0.9 MG/DL (0.2-1.0); Calcium 9.3 MG/DL (8.5-10.1); Osmolality,Calculated 286.2 MOS/KG (273-304); Potassium 4.1 MMOL/L (3.5-5.1); Total Protein 7.4 G/DL (6.4-8.2)
[2021-01-10] MEDS: INSULIN REGULAR 100 UNIT/ML SUBCUT SCH ×4 (08:21→22:04)
[2021-01-10] MEDS: PANTOPRAZOLE 40 MG TABLET PO SCH (08:21)
[2021-01-10] MEDS: SODIUM CHLORIDE 0.9% 1,000 ML IV SCH ×2 (16:19→22:30)
[2021-01-10] MEDS: FERROUS SULFATE 325 MG TABLET PO SCH (16:22)
[2021-01-10] MEDS: ENOXAPARIN 30 MG/0.3 ML SYRINGE SUBCUT SCH (22:25)
[2021-01-11 05:56] LABS: Basophils % 0.4 % (0.0-0.8); Eosinophils # 0.2 10*3/uL (0.0-0.87); Eosinophils % 2.8 % (0.00-10.9); Hematocrit 28.7 VOL% (42.0-52.0); Hemoglobin 9.3 GM/DL (14.0-18.0); Immature Granulocytes % 1.1 %; Immature Granulocytes Absolute 0.09 #; Lymphocytes # 1.7 10*3/uL (1.4-4.0); Lymphocytes % 21.8 % (21.2-54.2); Mean Corpuscular HGB Conc 32.4 GM/DL (32-36); Mean Corpuscular Volume 89.7 FL (87-102); Mean Platelet Volume 9.9 FL (9.6-12.0); Monocytes % 10.3 % (1.7-12.7); Neutrophils % 63.6 % (38.7-73.9); Platelet Count 219 T/CUMM (130-400); Red Cell Distribution Width 13.6 % (9.3-17.3); White Blood Count 7.8 T/CUMM (4-12)
[2021-01-11 06:10] LABS: Calcium 9.2 MG/DL (8.5-10.1); Osmolality,Calculated 293.5 MOS/KG (273-304); Potassium 3.8 MMOL/L (3.5-5.1)
[2021-01-11] MEDS: INSULIN REGULAR 100 UNIT/ML SUBCUT SCH ×4 (08:17→20:31)
[2021-01-11] MEDS: PANTOPRAZOLE 40 MG TABLET PO SCH (08:17)
[2021-01-11] MEDS: ASPIRIN CHEW 81 MG TABLET PO SCH (08:17)
[2021-01-11] MEDS: FERROUS SULFATE 325 MG TABLET PO SCH ×2 (08:18→17:22)
[2021-01-11] MEDS: SODIUM CHLORIDE 0.9% 1,000 ML IV SCH ×2 (08:23→17:25)
[2021-01-11] MEDS: CLOPIDOGREL 75 MG TABLET PO SCH (10:35)
[2021-01-11] MEDS: ATORVASTATIN 40 MG TABLET PO SCH (10:35)
[2021-01-11] MEDS: TAMSULOSIN 0.4 MG CAPSULE PO SCH (10:35)
[2021-01-11] MEDS: FINASTERIDE 5 MG TABLET PO SCH (10:36)
[2021-01-11] MEDS: ENOXAPARIN 30 MG/0.3 ML SYRINGE SUBCUT SCH (20:00)
[2021-01-12] MEDS: SODIUM CHLORIDE 0.9% 1,000 ML IV SCH ×2 (03:42→15:29)
[2021-01-12] MEDS: INSULIN REGULAR 100 UNIT/ML SUBCUT SCH ×2 (09:29→14:44)
[2021-01-12] MEDS: ATORVASTATIN 40 MG TABLET PO SCH (09:30)
[2021-01-12] MEDS: CLOPIDOGREL 75 MG TABLET PO SCH (09:30)
[2021-01-12] MEDS: FERROUS SULFATE 325 MG TABLET PO SCH (09:30)
[2021-01-12] MEDS: PANTOPRAZOLE 40 MG TABLET PO SCH (09:30)
[2021-01-12] MEDS: TAMSULOSIN 0.4 MG CAPSULE PO SCH (09:30)
[2021-01-12] MEDS: ASPIRIN CHEW 81 MG TABLET PO SCH (09:30)
[2021-01-12] MEDS: FINASTERIDE 5 MG TABLET PO SCH (09:30)
[2021-01-12 11:52] VITALS: BP 135/48
[2021-01-12 12:39] LABS: Calcium 9.2 MG/DL (8.5-10.1); Osmolality,Calculated 295.8 MOS/KG (273-304); Potassium 3.9 MMOL/L (3.5-5.1)
== END 2021-01-12 15:50 | DRG 683 ==
LOC: EDUNIT# → EDBD → N.ED 18:07 → N.EDINP 22:54 → SUATTDRO 22:54 → N.5E 01-10 00:10
PROVIDERS: ADMIT Internal Medicine; ATTEND Emergency Medicine

== ENCOUNTER 2021-02-13 13:24 | Inpatient (IN) ==
[2021-02-13] MEDS ORDERED: FUROSEMIDE 100 MG/10 ML VIAL IV STA (13:48)
[2021-02-13] MEDS ORDERED: ALBUTEROL 2.5 MG/3 ML NEB RESP TX STA (13:51)
[2021-02-13 14:24] LABS: ABG Base Excess -1.2 MMOL/L (-2.5-2.5); ABG HCO3 23.4 MMOL/L (20-26); ABG Oxygen Saturation 96.4 % (95-100); ABG PCO2 40.8 MM HG (35-48); ABG PH 7.375 (7.35-7.45); ABG TCO2 22.2 MMOL/L (23-27)
[2021-02-13] MEDS ORDERED: PIPERACILLIN/TAZOBACTAM 3,375 MG in SODIUM CHLORIDE 0.9% 100 ML IV STA (14:29)
[2021-02-13 14:45] LABS: Basophils % 0.2 % (0.0-0.8); Eosinophils # 0.6 10*3/uL (0.0-0.87); Eosinophils % 3.9 % (0.00-10.9); Hematocrit 28.6 VOL% (42.0-52.0); Hemoglobin 9.1 GM/DL (14.0-18.0); Immature Granulocytes % 1.3 %; Lymphocytes # 1.1 10*3/uL (1.4-4.0); Lymphocytes % 6.9 % (21.2-54.2); Mean Corpuscular HGB Conc 31.8 GM/DL (32-36); Mean Corpuscular Volume 88.5 FL (87-102); Mean Platelet Volume 10.2 FL (9.6-12.0); Monocytes % 8.7 % (1.7-12.7); Platelet Count 151 T/CUMM (130-400); Red Blood Count 3.23 MC/CUMM (3.8-5.5); Red Cell Distribution Width 13.7 % (9.3-17.3); White Blood Count 15.8 T/CUMM (4-12)
[2021-02-13 15:05] LABS: PT Patient Result 11.4 SECS (10.5-12.0); Partial Thromboplastin Time 33.4 SECS (23.9-33.8)
[2021-02-13 15:07] LABS: Albumin 3.1 G/DL (3.4-5.0); Bilirubin,Total 0.6 MG/DL (0.2-1.0); Calcium 8.5 MG/DL (8.5-10.1); Osmolality,Calculated 274.2 MOS/KG (273-304); Potassium 4.8 MMOL/L (3.5-5.1); Total Protein 6.4 G/DL (6.4-8.2)
[2021-02-13] MEDS ORDERED: methylPREDNISolone SOD SUC 125 MG/2 ML VIAL IV STA (15:39)
[2021-02-13] MEDS ORDERED: ONDANSETRON 4 MG/2 ML VIAL IV PRN (17:00)
[2021-02-13] MEDS ORDERED: DEXTROSE 50% 25 GM/50 ML VIAL IV PRN ×2 (17:00)
[2021-02-13] MEDS ORDERED: GLUCAGON 1 MG VIAL IM PRN ×2 (17:00)
[2021-02-13] MEDS ORDERED: ONDANSETRON ODT 4 MG TABLET PO PRN (17:06)
[2021-02-13] MEDS ORDERED: POLYVINYL ALCOHOL 1.4% OPH SOLN 15 ML BOTTLE BOTH EYES PRN (18:53)
[2021-02-13] MEDS ORDERED: LEVOFLOXACIN INJ 500 MG/100 ML PREMIX IV SCH (20:00)
[2021-02-13] MEDS: guaiFENesin/DM ER 600-30 MG TABLET PO SCH (22:13)
[2021-02-13] MEDS: methylPREDNISolone SOD SUC 40 MG/1 ML VIAL IV SCH (22:13)
[2021-02-13] MEDS: MELATONIN 3 MG TABLET PO SCH (22:13)
[2021-02-13] MEDS: ENOXAPARIN 30 MG/0.3 ML SYRINGE SUBCUT SCH (22:14)
[2021-02-13] MEDS: GABAPENTIN 300 MG CAPSULE PO SCH (22:14)
[2021-02-13] MEDS: INSULIN LISPRO 100 UNIT/ML SUBCUT SCH (22:15)
[2021-02-13] MEDS: SODIUM CHLORIDE 0.9% 1,000 ML IV SCH (22:15)
[2021-02-14] MEDS: SODIUM CHLORIDE 0.9% 1,000 ML IV SCH ×3 (05:15→22:29)
[2021-02-14 05:29] LABS: Basophils % 0.1 % (0.0-0.8); Hematocrit 27.1 VOL% (42.0-52.0); Hemoglobin 8.8 GM/DL (14.0-18.0); Immature Granulocytes % 1.5 %; Immature Granulocytes Absolute 0.16 #; Lymphocytes # 0.7 10*3/uL (1.4-4.0); Lymphocytes % 6.4 % (21.2-54.2); Mean Corpuscular HGB Conc 32.5 GM/DL (32-36); Mean Corpuscular Volume 87.7 FL (87-102); Mean Platelet Volume 10.5 FL (9.6-12.0); Monocytes % 1.9 % (1.7-12.7); Neutrophils % 90.1 % (38.7-73.9); Platelet Count 162 T/CUMM (130-400); Red Blood Count 3.09 MC/CUMM (3.8-5.5); Red Cell Distribution Width 13.6 % (9.3-17.3); White Blood Count 10.9 T/CUMM (4-12)
[2021-02-14 05:54] LABS: Albumin 2.7 G/DL (3.4-5.0); Bilirubin,Total 0.8 MG/DL (0.2-1.0); Calcium 8.8 MG/DL (8.5-10.1); Osmolality,Calculated 283.8 MOS/KG (273-304); Potassium 4.1 MMOL/L (3.5-5.1)
[2021-02-14] MEDS: methylPREDNISolone SOD SUC 40 MG/1 ML VIAL IV SCH ×3 (06:26→22:29)
[2021-02-14] MEDS ORDERED: MAGNESIUM SULF RIDER 4 GM/100 ML PREMIX IV PRN (07:36)
[2021-02-14] MEDS ORDERED: MAGNESIUM SULF RIDER 2 GM/50 ML PREMIX IV PRN (07:36)
[2021-02-14] MEDS ORDERED: carvediloL 12.5 MG TABLET PO SCH (09:00)
[2021-02-14] MEDS ORDERED: FERROUS SULFATE 325 MG TABLET PO SCH (09:00)
[2021-02-14] MEDS ORDERED: ASCORBIC ACID 500 MG TABLET PO SCH (09:00)
[2021-02-14] MEDS: INSULIN LISPRO 100 UNIT/ML SUBCUT SCH ×4 (10:01→21:33)
[2021-02-14] MEDS: GABAPENTIN 300 MG CAPSULE PO SCH ×3 (10:12→19:35)
[2021-02-14] MEDS: ISOSORBIDE MONONITRATE 30 MG TABLET PO SCH (10:13)
[2021-02-14] MEDS: TAMSULOSIN 0.4 MG CAPSULE PO SCH (10:13)
[2021-02-14] MEDS: guaiFENesin/DM ER 600-30 MG TABLET PO SCH ×2 (10:14→21:34)
[2021-02-14] MEDS: PANTOPRAZOLE 40 MG TABLET PO SCH (10:14)
[2021-02-14] MEDS: CLOPIDOGREL 75 MG TABLET PO SCH (10:14)
[2021-02-14] MEDS: CETIRIZINE 10 MG TABLET PO SCH (10:15)
[2021-02-14] MEDS: ATORVASTATIN 80 MG TABLET PO SCH (10:15)
[2021-02-14] MEDS: MULTIVITAMIN (BEROCCA) TABLET PO SCH (10:15)
[2021-02-14] MEDS: ASPIRIN CHEW 81 MG TABLET PO SCH (10:15)
[2021-02-14] MEDS: POTASSIUM CHLORIDE 20 MEQ TABLET PO SCH (10:20)
[2021-02-14] MEDS: FINASTERIDE 5 MG TABLET PO SCH (10:21)
[2021-02-14] MEDS: POLYETHYLENE GLYCOL POWDER 17 GM PACK PO SCH ×3 (10:22→21:33)
[2021-02-14] MEDS: MENTHOL/ZINC OXIDE OINT 71 GM JAR TOP SCH ×2 (12:30→21:34)
[2021-02-14] MEDS ORDERED: INSULIN NPH/REGULAR 70/30 100 UNIT/ML SUBCUT SCH (16:00)
[2021-02-14] MEDS: ASCORBIC ACID 500 MG TABLET PO SCH (21:34)
[2021-02-14] MEDS: carvediloL 12.5 MG TABLET PO SCH (21:34)
[2021-02-14] MEDS: MELATONIN 3 MG TABLET PO SCH (21:34)
[2021-02-14] MEDS: FERROUS SULFATE 325 MG TABLET PO SCH (21:34)
[2021-02-14] MEDS: ENOXAPARIN 30 MG/0.3 ML SYRINGE SUBCUT SCH (21:34)
[2021-02-14] MEDS: INSULIN NPH/REGULAR 70/30 100 UNIT/ML SUBCUT SCH (22:30)
[2021-02-15] MEDS: SODIUM CHLORIDE 0.9% 1,000 ML IV SCH ×2 (03:08→09:35)
[2021-02-15 05:05] LABS: Basophils % 0.1 % (0.0-0.8); Hematocrit 27.5 VOL% (42.0-52.0); Hemoglobin 8.8 GM/DL (14.0-18.0); Immature Granulocytes % 1.5 %; Immature Granulocytes Absolute 0.19 #; Lymphocytes # 0.8 10*3/uL (1.4-4.0); Lymphocytes % 6.4 % (21.2-54.2); Mean Corpuscular Volume 88.7 FL (87-102); Monocytes % 10.1 % (1.7-12.7); Neutrophils % 81.9 % (38.7-73.9); Platelet Count 192 T/CUMM (130-400); Red Cell Distribution Width 13.6 % (9.3-17.3); White Blood Count 12.7 T/CUMM (4-12)
[2021-02-15] MEDS: methylPREDNISolone SOD SUC 40 MG/1 ML VIAL IM SCH ×2 (05:25→13:57)
[2021-02-15] MEDS: INSULIN NPH/REGULAR 70/30 100 UNIT/ML SUBCUT SCH (05:28)
[2021-02-15 05:53] LABS: Calcium 8.8 MG/DL (8.5-10.1); Osmolality,Calculated 294.1 MOS/KG (273-304); Potassium 3.9 MMOL/L (3.5-5.1)
[2021-02-15] MEDS: INSULIN LISPRO 100 UNIT/ML SUBCUT SCH ×2 (07:29→11:38)
[2021-02-15] MEDS: ASPIRIN CHEW 81 MG TABLET PO SCH (09:11)
[2021-02-15] MEDS: FINASTERIDE 5 MG TABLET PO SCH (09:12)
[2021-02-15] MEDS: TAMSULOSIN 0.4 MG CAPSULE PO SCH (09:12)
[2021-02-15] MEDS: carvediloL 12.5 MG TABLET PO SCH (09:12)
[2021-02-15] MEDS: POLYETHYLENE GLYCOL POWDER 17 GM PACK PO SCH (09:12)
[2021-02-15] MEDS: GABAPENTIN 300 MG CAPSULE PO SCH ×2 (09:13→13:43)
[2021-02-15] MEDS: ISOSORBIDE MONONITRATE 30 MG TABLET PO SCH (09:13)
[2021-02-15] MEDS: ASCORBIC ACID 500 MG TABLET PO SCH (09:13)
[2021-02-15] MEDS: CETIRIZINE 10 MG TABLET PO SCH (09:13)
[2021-02-15] MEDS: CLOPIDOGREL 75 MG TABLET PO SCH (09:13)
[2021-02-15] MEDS: POTASSIUM CHLORIDE 20 MEQ TABLET PO SCH (09:13)
[2021-02-15] MEDS: PANTOPRAZOLE 40 MG TABLET PO SCH (09:13)
[2021-02-15] MEDS: FERROUS SULFATE 325 MG TABLET PO SCH (09:13)
[2021-02-15] MEDS: ATORVASTATIN 80 MG TABLET PO SCH (09:13)
[2021-02-15] MEDS: guaiFENesin/DM ER 600-30 MG TABLET PO SCH (09:13)
[2021-02-15] MEDS: MULTIVITAMIN (BEROCCA) TABLET PO SCH (09:13)
[2021-02-15] MEDS: MENTHOL/ZINC OXIDE OINT 71 GM JAR TOP SCH (09:35)
[2021-02-15] MEDS ORDERED: LEVOFLOXACIN 500 MG TABLET PO ONE (11:00)
[2021-02-15 11:54] VITALS: BP 153/52
[2021-02-16] MEDS ORDERED: [UNRECOGNIZED DRUG - REMARK] SUBCUT SCH (09:00)
== END 2021-02-15 15:40 | DRG 193 ==
LOC: SUATTDRO → N.ED 13:24 → N.EDINP 17:00 → SUATTDRO 17:00 → N.5E 18:46
PROVIDERS: ADMIT Family Medicine; ATTEND Hospitalist